=== PATIENT | female | born 1965 ===

== ENCOUNTER → 2018-01-22 06:00 | Outpatient (CLI) | payer OTHER | END | disposition home or self-care (01) | LOC: LAB 06:00 → CIR.AMB 01-23 07:50 → EDSTATUS 01-23 12:45 → CIR.AMB 01-23 12:48 | DX: Z01.812 Encounter for preprocedural laboratory examination (principal); Z01.811 Encounter for preprocedural respiratory examination; L02.213 Cutaneous abscess of chest wall ==

== ENCOUNTER 2018-01-22 14:31 | Outpatient (CLI) | payer OTHER | END 2018-01-22 14:37 | disposition home or self-care (01) | LOC: SONOGRAMA 14:31 | DX: L02.213 Cutaneous abscess of chest wall (principal) ==